=== PATIENT | male | born 1955 | race Caucasian/White ===

== ENCOUNTER 2020-10-16 19:14 | Emergency (ER) | payer BC ==
[~2020-10-16] VITALS: Ht 167.6 cm; Wt 105.7 kg
[~2020-10-16 19:14] MED LIST: ACET325 PO; ASPI325 PO; ATEN100 PO; ATOR10 PO; CEPH500 PO; CITA20 PO; CLOP75 PO; IBUP600 PO; Isosorbide Mono30 MG PO; K-Dur20 MEQ PO; LISI20 PO; METO50ER PO; NITR.4SL SL; OXYACE5T PO; PROM25 PO; Percocet 5-3251 EACH PO; RXPROM25 PO; TRAZ50 PO; Tamiflu75 MG PO; ZESTORETIC 20-1 EACH PO; Zofran Odt4 MG PO
[2020-10-16 20:24] LABS: BASOPHILS ABSOLUTE AUTO 0.07 K/mm3 (0.00-0.23); BASOPHILS PERCENT AUTO 1 % (0-2); EOSINOPHILS ABSOLUTE AUTO 0.46 K/mm3 (0.00-0.68); EOSINOPHILS PERCENT AUTO 6 % (0-6); Hematocrit 40.6 % (37.0-53.0); Hemoglobin 14.1 g/dL (13.5-17.5); IMMATURE GRAN ABSOLUTE AUTO 0.03 K/mm3 (0.00-0.10); IMMATURE GRAN PERCENT AUTO 0 % (0-1); LYMPHOCYTES ABSOLUTE AUTO 1.25 K/mm3 (0.84-5.20); LYMPHOCYTES PERCENT AUTO 17 % (21-46); MONOCYTES ABSOLUTE AUTO 0.65 K/mm3 (0.16-1.47); MONOCYTES PERCENT AUTO 9 % (4-13); Mean Corpuscular HGB 30.7 pg (26.0-34.0); Mean Corpuscular HGB Conc 34.7 g/dL (31.5-36.5); Mean Corpuscular Volume 88 fL (80-100); Mean Platelet Volume 10.6 fL (9.1-12.4); NEUTROPHILS ABSOLUTE AUTO 4.87 K/mm3 (1.96-9.15); NEUTROPHILS PERCENT AUTO 66 % (41-73); Platelet Count 267 K/mm3 (150-400); RDW Coefficient Variation 12.3 % (11.7-14.2); RDW Standard Deviation 39.5 fL (35.1-46.3); White Blood Cell Count 7.33 K/mm3 (4.00-11.30)
[2020-10-16 20:41] LABS: Alanine Aminotransfer (ALT/SGP 25 U/L (12-78); Albumin, Blood 3.5 g/dL (3.4-5.0); Albumin/Globulin Ratio 1.2 (0.8-1.8); Alk Phos 68 U/L (50-136); Anion Gap 5 mmol/L (6-16); Aspartate Aminotrans (AST/SGOT 15 U/L (12-37); Bilirubin, Total 0.4 mg/dL (0.1-1.0); Blood Urea Nitrogen 14 mg/dL (8-24); Bun/Creatinine Ratio 16.4 (12.0-20.0); CO2, Blood 27 mmol/L (21-32); Calcium, Blood 8.6 mg/dL (8.5-10.1); Chloride, Blood 101 mmol/L (98-108); Creatinine, Blood 0.86 mg/dL (0.60-1.20); Globulin, Blood 2.8 g/dL (2.2-4.0); Glomerular Filtration Rate >60 (60-); Glucose, Blood 105 mg/dL (70-99); Sodium, Blood 133 mmol/L (136-145); Total Protein, Blood 6.3 g/dL (6.4-8.2); Troponin I <0.015 ng/mL (0.000-0.040)
== END 2020-10-17 00:06 | disposition home or self-care (01) ==
LOC: ER 19:14
PROVIDERS: Emergency Medicine
DX: I25.10 Atherosclerotic heart disease of native coronary artery without angina pectoris (principal); I10 Essential (primary) hypertension; F32.9 Major depressive disorder, single episode, unspecified; I25.2 Old myocardial infarction; Z79.02 Long term (current) use of antithrombotics/antiplatelets; Z88.5 Allergy status to narcotic agent; Z79.899 Other long term (current) drug therapy; Z87.891 Personal history of nicotine dependence
CPT/HCPCS: 36415; 71045; 80053; 84484; 85025; 93005; 93010; 99284-25

== ENCOUNTER 2021-03-18 16:35 | Observation (INO) | payer MEDICARE, BC ==
[~2021-03-18] VITALS: Ht 170.2 cm; Wt 103.4 kg
[~2021-03-18 16:35] MED LIST changes: +Lisinopril-Hct1 EAC4 PO; -ZESTORETIC 20-1 EACH PO
[2021-03-18 17:11] LABS: BASOPHILS ABSOLUTE AUTO 0.03 K/mm3 (0.00-0.23); BASOPHILS PERCENT AUTO 0 % (0-2); EOSINOPHILS ABSOLUTE AUTO 0.06 K/mm3 (0.00-0.68); EOSINOPHILS PERCENT AUTO 1 % (0-6); Hematocrit 47.3 % (37.0-53.0); Hemoglobin 16.4 g/dL (13.5-17.5); IMMATURE GRAN ABSOLUTE AUTO 0.05 K/mm3 (0.00-0.10); IMMATURE GRAN PERCENT AUTO 0 % (0-1); LYMPHOCYTES PERCENT AUTO 7 % (21-46); MONOCYTES ABSOLUTE AUTO 0.59 K/mm3 (0.16-1.47); MONOCYTES PERCENT AUTO 5 % (4-13); Mean Corpuscular HGB 30.7 pg (26.0-34.0); Mean Corpuscular HGB Conc 34.7 g/dL (31.5-36.5); Mean Corpuscular Volume 88 fL (80-100); Mean Platelet Volume 10.4 fL (9.1-12.4); NEUTROPHILS ABSOLUTE AUTO 10.47 K/mm3 (1.96-9.15); NEUTROPHILS PERCENT AUTO 87 % (41-73); Platelet Count 336 K/mm3 (150-400); RDW Coefficient Variation 12.5 % (11.7-14.2); RDW Standard Deviation 40.8 fL (35.1-46.3); Red Blood Cell Count 5.35 M/mm3 (4.30-5.90)
[2021-03-18 17:36] LABS: Alanine Aminotransfer (ALT/SGP 22 U/L (12-78); Albumin, Blood 4.1 g/dL (3.4-5.0); Albumin/Globulin Ratio 1.2 (0.8-1.8); Alk Phos 69 U/L (50-136); Anion Gap 6 mmol/L (6-16); Aspartate Aminotrans (AST/SGOT 11 U/L (12-37); Bilirubin, Total 0.5 mg/dL (0.1-1.0); Blood Urea Nitrogen 18 mg/dL (8-24); Bun/Creatinine Ratio 18.4 (12.0-20.0); CO2, Blood 27 mmol/L (21-32); Calcium, Blood 10.1 mg/dL (8.5-10.1); Chloride, Blood 108 mmol/L (98-108); Creatinine, Blood 0.98 mg/dL (0.60-1.20); Globulin, Blood 3.4 g/dL (2.2-4.0); Glomerular Filtration Rate >60 (60-); Glucose, Blood 134 mg/dL (70-99); Potassium, Blood 4.2 mmol/L (3.5-5.5); Sodium, Blood 141 mmol/L (136-145); Total Protein, Blood 7.5 g/dL (6.4-8.2); Troponin I <0.015 ng/mL (0.000-0.040)
--- NOTE | 2021-03-19 01:04 | NUR ---
*MRI CONCERNS* PT REPORTS HAVING CLAUSTROPHOBIA AND WOULD LIKE MEDICATION PRIOR TO MRI.
--- NOTE | 2021-03-19 03:24 | NUR ---
SUMMARY PT ARRIVED TO FLOOR IN NO DISTRESS. PT DENIES SOB OR DIZZINESS. PT CONCERNED ABOUT HIS CLAUSTROPHOBIA DURING MRI IN AM. WILL PASS ON TO DAY RN. PT CURRENTLY SLEEPING IN NO DISTRESS. CALL LIGHT IN REACH.
[2021-03-19 05:17] LABS: Hematocrit 42.7 % (37.0-53.0); Hemoglobin 14.7 g/dL (13.5-17.5); Mean Corpuscular HGB 30.8 pg (26.0-34.0); Mean Corpuscular HGB Conc 34.4 g/dL (31.5-36.5); Mean Corpuscular Volume 89 fL (80-100); Platelet Count 236 K/mm3 (150-400); RDW Coefficient Variation 12.6 % (11.7-14.2); RDW Standard Deviation 41.1 fL (35.1-46.3); Red Blood Cell Count 4.78 M/mm3 (4.30-5.90); White Blood Cell Count 9.47 K/mm3 (4.00-11.30)
--- NOTE | 2021-03-19 17:38 | NUR ---
DISCHARGE MEDICATIONS AND INSTRUCTIONS EXPLAINED TO PATIENT AND DAUGHTER CINDY. THEY STATED UNDERSTANDING. PACKET SENT WITH PATIENT. PATIENT TO SCHEDULE FOLLOW UP WITH PCP. PATIENT TO GET OUTPATIENT SLEEP STUDY REFERRAL FROM PCP. IV REMOVED WITHOUT DIFFICULTY. BELONGINGS WITH PATIENT. PATIENT TRANSPORTED VIA WHEELCHAIR TO PRIVATE VEHICLE.
== END 2021-03-19 17:27 | disposition home or self-care (01) ==
LOC: ER 16:35 → MEDS 16:36
PROVIDERS: Physician Assistant; ADMIT Internal Medicine
DX: I16.0 Hypertensive urgency (principal); D72.829 Elevated white blood cell count, unspecified; G47.33 Obstructive sleep apnea (adult) (pediatric); F32.9 Major depressive disorder, single episode, unspecified; I25.10 Atherosclerotic heart disease of native coronary artery without angina pectoris; M54.9 Dorsalgia, unspecified; Z87.891 Personal history of nicotine dependence
CPT/HCPCS: 36415; 70450; 70551; 71046; 80053; 83735; 83880; 84484; 85025; 85027; 93005; 93010; 96374; 97161; 99285-25; A9270; G0378

== ENCOUNTER 2023-03-28 19:20 | Observation (INO) | payer MEDICARE, BC ==
[~2023-03-28] VITALS: Ht 172.7 cm; Wt 111.1 kg
[~2023-03-28 19:20] MED LIST changes: +OXYC5 PO
[2023-03-28 20:16] LABS: BASOPHILS ABSOLUTE AUTO 0.04 K/mm3 (0.00-0.23); BASOPHILS PERCENT AUTO 1 % (0-2); EOSINOPHILS ABSOLUTE AUTO 0.16 K/mm3 (0.00-0.68); EOSINOPHILS PERCENT AUTO 2 % (0-6); Hematocrit 40.7 % (37.0-53.0); Hemoglobin 14.4 g/dL (13.5-17.5); IMMATURE GRAN ABSOLUTE AUTO 0.02 K/mm3 (0.00-0.10); IMMATURE GRAN PERCENT AUTO 0 % (0-1); LYMPHOCYTES ABSOLUTE AUTO 1.69 K/mm3 (0.84-5.20); LYMPHOCYTES PERCENT AUTO 25 % (21-46); MONOCYTES ABSOLUTE AUTO 0.49 K/mm3 (0.16-1.47); MONOCYTES PERCENT AUTO 7 % (4-13); Mean Corpuscular HGB 30.8 pg (26.0-34.0); Mean Corpuscular HGB Conc 35.4 g/dL (31.5-36.5); Mean Corpuscular Volume 87 fL (80-100); Mean Platelet Volume 9.7 fL (9.1-12.4); NEUTROPHILS ABSOLUTE AUTO 4.32 K/mm3 (1.96-9.15); NEUTROPHILS PERCENT AUTO 64 % (41-73); NRBC ABSOLUTE 0.02 K/mm3 (0.00-0.02); NRBC Auto 0.3 /100 WBC (0.0-0.2); Platelet Count 265 K/mm3 (150-400); RDW Coefficient Variation 12.5 % (11.7-14.2); RDW Standard Deviation 39.8 fL (35.1-46.3); Red Blood Cell Count 4.67 M/mm3 (4.30-5.90); White Blood Cell Count 6.72 K/mm3 (4.00-11.30)
[2023-03-28 20:35] LABS: Albumin, Blood 3.5 g/dL (3.4-5.0); Albumin/Globulin Ratio 1.3 (0.8-1.8); Bilirubin, Total 0.7 mg/dL (0.1-1.0); Bun/Creatinine Ratio 16.8 (12.0-20.0); Calcium, Blood 8.6 mg/dL (8.5-10.1); Creatinine, Blood 0.9 mg/dL (0.60-1.20); Globulin, Blood 2.6 g/dL (2.2-4.0); Potassium, Blood 4.5 mmol/L (3.5-5.5); Total Protein, Blood 6.1 g/dL (6.4-8.2)
[2023-03-28 21:18] LABS: International Normalized Ratio 1.05
[2023-03-29] MEDS ORDERED: BUSP10 PO (01:22)
[2023-03-29] MEDS ORDERED: ALBU90OI INH (01:24)
[2023-03-29 01:41] VITALS: BP 167/97
[2023-03-29 03:32] VITALS: BP 145/88
--- NOTE | 2023-03-29 03:45 | NUR ---
PT ARRIVED ON UNIT EARLY THIS MORNING, SOMETIME AROUND ~0130. EXACT TIME WRITTEN WITHIN ROOM. PT HAS NOT HAD ANY PAIN REPORTED THIS SHIFT. ADMITTED FOR STROKE LIKE SYMPTOMS WITH LIKELY TIA. PT HAS BEEN ASYMPTOMATIC SINCE ARRIVING ON UNIT. STRENGTH INTACT BILATERALLY, NO VISION CHANGES, NORMAL SPEECH, AOX4. PLEASANT, COOPERATIVE WITH CARE. MEDICATION RECONCILIATION AND HEALTH HX COMPLETED. PER ED REPORT PT IS SUPPOSED TO HAVE AN MRI COMPLETED TODAY AND IS NERVOUS TO HAVE COMPLETED. SBA TO BATHROOM AND CALLS APPROPRIATELY. CARDIAC DIET. IV IN THIERNO SALINE LOCKED. PT HAS NOT SLEPT MUCH THIS SHIFT BUT HAS BEEN RESTING COMFORTABLY IN BED. BED LOCKED IN LOWEST POSITION. CALL LIGHT LEFT WITHIN REACH.
[2023-03-29 05:05] LABS: BASOPHILS ABSOLUTE AUTO 0.06 K/mm3 (0.00-0.23); BASOPHILS PERCENT AUTO 1 % (0-2); EOSINOPHILS ABSOLUTE AUTO 0.31 K/mm3 (0.00-0.68); EOSINOPHILS PERCENT AUTO 5 % (0-6); Hematocrit 39.3 % (37.0-53.0); Hemoglobin 13.8 g/dL (13.5-17.5); IMMATURE GRAN ABSOLUTE AUTO 0.02 K/mm3 (0.00-0.10); IMMATURE GRAN PERCENT AUTO 0 % (0-1); LYMPHOCYTES ABSOLUTE AUTO 1.66 K/mm3 (0.84-5.20); LYMPHOCYTES PERCENT AUTO 24 % (21-46); MONOCYTES ABSOLUTE AUTO 0.51 K/mm3 (0.16-1.47); MONOCYTES PERCENT AUTO 7 % (4-13); Mean Corpuscular HGB 30.9 pg (26.0-34.0); Mean Corpuscular HGB Conc 35.1 g/dL (31.5-36.5); Mean Corpuscular Volume 88 fL (80-100); Mean Platelet Volume 10.1 fL (9.1-12.4); NEUTROPHILS ABSOLUTE AUTO 4.37 K/mm3 (1.96-9.15); NEUTROPHILS PERCENT AUTO 63 % (41-73); Platelet Count 252 K/mm3 (150-400); RDW Coefficient Variation 12.7 % (11.7-14.2); Red Blood Cell Count 4.46 M/mm3 (4.30-5.90); White Blood Cell Count 6.93 K/mm3 (4.00-11.30)
[2023-03-29 05:27] LABS: Albumin, Blood 3.2 g/dL (3.4-5.0); Albumin/Globulin Ratio 1.2 (0.8-1.8); Bilirubin, Total 0.9 mg/dL (0.1-1.0); Bun/Creatinine Ratio 14.1 (12.0-20.0); Calcium, Blood 8.5 mg/dL (8.5-10.1); Globulin, Blood 2.7 g/dL (2.2-4.0); Magnesium, Blood 2.2 mg/dL (1.6-2.4); Potassium, Blood 3.9 mmol/L (3.5-5.5); Total Protein, Blood 5.9 g/dL (6.4-8.2)
[2023-03-29 07:37] VITALS: BP 142/80
[2023-03-29] MEDS ORDERED: IMODIUM A-D2 M1 PO (11:00)
[2023-03-29] MEDS ORDERED: ASPI81CH PO (15:02)
[2023-03-29 15:33] VITALS: BP 138/82
--- NOTE | 2023-03-29 16:36 | NUR ---
END OF SHIFT SUMMARY PT A&O X4, PLEASANT AND COOPERATIVE REGARDING CARE. PT TAKEN FOR MRI THIS AM. WAITING MOST OF THE DAY FOR AN ECHO WHICH WAS COMPLETED THIS AFTERNOON. DOCTOR WOULD LIKE TO READ ECHO BEFORE DISCHARGING PT. PT ON TELE, SINUS RHYTMN AROUND 60's. TUSHAR FROM MONITORING CALLED TO REPORT AN EPISODE OF BRADYCARDIA. NOTIFIED. ZIO PATCH PLACED ON PATIENT TODAY. PT EXPECTED TO BE DISCHARGED TOMORROW LONG NO ACUTE EVENTS. INDEPENDENT IN ROOM AND STATES HE FEELS BACK TO HIS BASELINE. DAUGHTER AT BEDSIDE MOST OF THE DAY. PT USES CALL LIGHT AND BED IS IN THE LOW POSITION.
[2023-03-29 19:57] VITALS: BP 159/85
[2023-03-30 03:29] VITALS: BP 132/88
--- NOTE | 2023-03-30 04:27 | NUR ---
SHIFT HAS BEEN UNREMARKABLE. SPOKE WITH RESIDENT DR. NANCE EARLY IN SHIFT DISCUSSING PT AND DAUGHTER REQUEST TO RESUME HOME MEDICATIONS TOPROL AND ISOSORBIDE. RECEIVED ORDER AND ADMINISTERED SCHEDULED 2100 MEDICATIONS ALONG WITH NEW ORDER FOR MELATONIN. SINCE THAT TIME PT HAS BEEN SLEEPING/RESTING IN BED. TELE ON THROUGH SHIFT WITH NO EVENTS NOTED. NO EPISODES OF CHEST PAIN THIS SHIFT, NITROGLYCERIN REMAINS AVAILABLE SHOULD THIS OCCUR. CALLS APPROPRIATELY. AOX4, PLEASANT, COOPERATIVE WITH CARE. BED LOCKED IN LOWEST POSITION. CALL LIGHT LEFT WITHIN REACH.
[2023-03-30 08:00] VITALS: BP 148/90
--- NOTE | 2023-03-30 12:16 | NUR ---
PT DISCHARGED THE PT AND HIS FAMILY VERBALIZED UNDERSTANDING OF THE DC INSTRUCTIONS. THE PTS PRESCRIPTIONS FAXED TO [facility] INSTRU[facility]. THE PT WAS REMINDED TO CALL HIS PCP AND SCHEDULE A POST HOSPITAL REVIEW APPOINTMENT. THE PT WAS TRANSFERED VIA WHEELCHAIR ACCOMPANIED BY THE SHIP'S ELECT[employer]IC [employer] OFFICER AND HIS FAMILY
== END 2023-03-30 11:49 | disposition home or self-care (01) ==
LOC: ER 19:20 → MEDS 19:21 → ENPENDDIS 03-29 12:38 → MEDS 03-30 11:49
PROVIDERS: Student in an Organized Health Care Education/Training Program; ADMIT Student in an Organized Health Care Education/Training Program
DX: G45.9 Transient cerebral ischemic attack, unspecified (principal); I25.10 Atherosclerotic heart disease of native coronary artery without angina pectoris; I10 Essential (primary) hypertension; I67.82 Cerebral ischemia
CPT/HCPCS: 36415; 70496; 70498; 70551; 80053; 83735; 85025; 85610; 93005; 93010; 93246; 93306; 96372; 99285-25; A9270; G0378; J1650; Q9967

== ENCOUNTER 2025-05-31 06:59 | Day surgery (SDC) | payer MEDICARE, OTHER ==
[2025-05-31] VITALS (11 sets, daily range): BP systolic 113–179; BP diastolic 63–97
[~2025-05-31] VITALS: Ht 170.2 cm; Wt 120.2 kg
[~2025-05-31 06:59] MED LIST changes: +ALBU90OI INH; +ASPI81CH PO; -ATOR10 PO; +ATOR40TA PO; +BUSP10 PO; +Hydrochloroth12.5 MG PO; +IMODIUM A-D2 M1 PO
[2025-05-31] MEDS ORDERED: CeFAZolin Sodium 2,000 MG in NS 100 ML IV SCH (07:20)
[2025-05-31] MEDS ORDERED: CeFAZolin Sodium 3,000 MG in NS 100 ML IV SCH (07:45)
[2025-05-31] MEDS ORDERED: CeFAZolin Sodium 3,000 MG VIAL ONE (08:06)
[2025-05-31] MEDS ORDERED: Bupivacaine 0.5% HCl 5 MG/ML 30MLVIAL ONE (08:45)
[2025-05-31] MEDS ORDERED: Lidocaine HCl 4% 5 ML SDA ONE (09:12)
[2025-05-31] MEDS ORDERED: FentaNYL Citrate 50 MCG/ML 2 ML Injection ONE (09:16)
[2025-05-31] MEDS ORDERED: Ondansetron HCl 2 MG / ML 2ML Vial ONE (09:28)
[2025-05-31] MEDS ORDERED: Dexamethasone Sod Phos 10 MG/ML 1ML VIAL ONE (09:28)
[2025-05-31] MEDS ORDERED: Rocuronium Bromide 10 MG/ML 5ML Injection IV ONE ×2 (09:28→09:56)
[2025-05-31] MEDS ORDERED: Sugammadex Sodium 200 MG/2ML SDV (100 MG/ML) ONE (09:33)
--- NOTE | 2025-05-31 09:50 | NUR ---
05/31/25 0950 Diamante Santana BEFORE PREP SMALL CIRCULAR REDDENED AREA MID TO LEFT ABDOMEN NOTED.
[2025-05-31] MEDS ORDERED: FentaNYL Citrate 50 MCG/ML 2 ML Injection IV PRN ×2 (10:10→10:15)
[2025-05-31] MEDS ORDERED: HYDROmorphone HCl/Pf 1MG SYR IV PRN (10:15)
[2025-05-31] MEDS ORDERED: Albuterol 2.5 MG/3 ML VIAL INH PRN (10:15)
[2025-05-31] MEDS ORDERED: Ondansetron HCl 2 MG / ML 2ML Vial IV PRN (10:15)
[2025-05-31] MEDS ORDERED: HYDROcodone 5-APAP 325 TAB PO PRN (11:00)
--- NOTE | 2025-05-31 11:55 | NUR ---
REPORT RECEIVED FROM JD PERRIN. VSS. PT ON RA. PT A&OX4. PT ABLE TO REPOSITION SELF IN BED. PT REQUESTING PO FOOD/FLUIDS AND TOLERATING THEM WELL. PT MEDICATED FOR PAIN PER DR WANG ORDERS IN [facility]. PT DENIES NAUSEA OR OTHER DISCOMFORTS. PT HAS GAUZE/TEGADERM TO ABD THAT IS CDI. PT ALSO HAS ABD BINDER IN PLACE. PT DAUGHTERS AT BEDSIDE.
--- NOTE | 2025-05-31 12:32 | NUR ---
Patient up to Ambulate independently. Gait steady. VSS AND CONSISTENT WITH PT BASELINE. PT REPORTS PAIN IS AT A TOLERABLE LEVEL AND DENIES NEEDING MORE PAIN MEDICATION. PT VERBALIZES READINESS TO GO HOME. Discharge instructions reviewed with patient AND HIS DAUGHTERS. Patient verbalizes understanding. Copy given to patient to take home. Dressing to procedure site clean, dry, intact with no visible drainage, swelling, erythema or bruising noted. Patient States Post-Procedure ride home has been arranged. Discharged via wheelchair to private car for ride home. PT BELONGINGS RETURNED TO PT.
== END 2025-05-31 12:32 | disposition home or self-care (01) ==
LOC: ORSCMMR 06:59 → ORD 08:45 → ORSCMMR 08:45
PROVIDERS: Surgery
PROC: 0WUF0JZ Supplement Abdominal Wall with Synthetic Substitute, Open Approach (ICD-10-PCS; principal; 2025-05-31 08:45)
DX: K43.6 Other and unspecified ventral hernia with obstruction, without gangrene (principal); I10 Essential (primary) hypertension; E78.5 Hyperlipidemia, unspecified; I25.10 Atherosclerotic heart disease of native coronary artery without angina pectoris; G47.33 Obstructive sleep apnea (adult) (pediatric); Z87.891 Personal history of nicotine dependence; Z86.73 Personal history of transient ischemic attack (TIA), and cerebral infarction without residual deficits; F32.A Depression, unspecified; E66.01 Morbid (severe) obesity due to excess calories; Z68.41 Body mass index [BMI] 40.0-44.9, adult; Z79.02 Long term (current) use of antithrombotics/antiplatelets; Z79.899 Other long term (current) drug therapy
CPT/HCPCS: A9270; C1781; J0690; J1100; J2003; J2405; J2704; J3010; J7120